=== PATIENT | female | born 1975 | race Caucasian/White ===

== ENCOUNTER 2017-03-20 18:11 | Inpatient (IN) | payer OTHER ==
--- NOTE | 2017-03-20 21:50 | NUR ---
Nurses Admission Note 41 year old involuntary female ROHINI'd as danger to self. Patient was found in a [place] parking lot overdosed on Hydrocodone and Robaxin with a suicide note in the car. Patient reported previous psychiatric hospitalizations in grade school with suicidal ideation and depression. Patient couldn't remember several of previously prescribed antidepressants. Patient denied anxiety and panic attacks since leaving her boyfriend in late December/January and has an order of protection and has been essentially homeless since then. Patient rated her depression at 8/10,Anxiety 0/10 and half-heartedly agreed to remain safe on the unit. Patient reported no medications at this time. Patient has a history of neck surgery in 2013 and had been prescribed Hydrocodone and Robaxin at that time. Will maintain q 15min. checks for safety and support.
[2017-03-21] MEDS ORDERED: Magnesium Hydroxide 10 mL Oral Concentration PO PRN (00:05)
[2017-03-21] MEDS ORDERED: Alum-Mag Hydrox-Simeth 30 mL Suspension PO PRN (00:05)
--- NOTE | 2017-03-21 01:01 | NUR ---
ADMIT/NOC OBS Arrived to unit at 2150. Signed all paperwork and was oriented to unit. Affect flat with minimal eye contact. Appropriate response to questions and interactions. Speech soft and reserved in demeanor, looking at times ready to cry. Pt was somewhat tearful once in bed. Asleep at 0000. Observed Q15 as ordered.
--- NOTE | 2017-03-21 13:53 | NUR ---
Obs Dayshift Pt is calm, quiet, reserved, head down, poor eye contact, appears sad and depressed. Pt spent most of the day in her room and appeared to be sleeping most of that time. Pt does get up and participates in meals, and groups on the unit. Pt is polite and appropriate on the unit and in groups. Good ADL's, Good meals
[2017-03-21 14:02] LABS: BASOPHILS % (AUTO) 0.2 % (0-3); EOSINOPHILS % (AUTO) 6.3 % (0-5); MONOCYTES % (AUTO) 7.2 % (4-12); Mean Corpuscular Hemoglobin 29.2 pg (27.0-35.0); Mean Corpuscular Volume 87.6 fL (81-100); NEUTROPHILS % (AUTO) 63.4 % (40-74); Platelet Count 216 bil/L (150-400)
--- NOTE | 2017-03-21 15:15 | NUR ---
Nursing Notes [id number] S: "I just don't understand why I am still here". O: Patient isolating in room. Did not come to dining room for breakfast and ate only about 30% of lunch. Patient denied anxiety, rated depression as "27" and would not respond when asked about current suicidal ideation. A: Patient labile, tearful and sobbing at times. Depressed, flat affect, guarded. P: Monitor for safety and response to treatment. Follow plan of care.
--- NOTE | 2017-03-21 18:21 | NUR ---
manager clinical informatics/Counselor: S: "I'm just not really good at the life thing." O: Patient slept 5+ hours last night per staff. Patient denies S/I and H/I. She also denies auditory and visual hallucinations. Depression is 10/10 and anxiety is 10/10. A: Patient is cooperative, labile, guarded, depressed, flat affect, hopeless, helpless, limited insight, limited judgment. P: Follow care plan, coordinate with out-patient providers.
[2017-03-21 19:28] VITALS: BP 116/80; PULSE 67; RESP 16
[2017-03-21] MEDS: LORazepam 1 mg Tablet PO PRN (20:21)
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
--- NOTE | 2017-03-22 04:44 | NUR ---
nausea/meds: pt. nauseas, too early for zofran, pt. given 1mg ativan, nausea improved, pt. able to sleep.
[2017-03-22 09:30] VITALS: BP 121/86; PULSE 68; RESP 17
--- NOTE | 2017-03-22 15:05 | NUR ---
NURS Note DAYSHIFT Mood: Endorses depression. Denies anxiety. Affect: Tearful. Thought Process/Content: "I wish I hadn't survived. I feel guilty for thinking that." Linear, logical. Behavior: Pt attended and participated in all groups. In bed in afternoon. PRNs/NURS:Pt requested and given feminine products.
--- NOTE | 2017-03-22 18:08 | PCM.PNPSY ---
Subjective Date of Service Mar 22, 2017 Subjective Patient states she is "doing better" compared to yesterday. She shared that she had told herself, "Today I am going to eat something" and other positive thought processes such as attending group and not isolating. She admits to increased negative thoughts with isolation. Patient contacted a friend who reported to her work that she was under medical care. She believes that most of her social group is aware of her current hospitalization as her ex-boyfriend contacted her Facebook friends and informed them. She believes her company will be supportive. Patient denies medication side effects but states that rapid increase in Sertraline previously resulted in nausea. She reports her current nausea started before the first dose of Sertraline and that it is not related. Her nausea responded well to Zofran and crackers. Patient admits that she is uncertain as to what the next steps would be as "there wasn't supposed to be an after". Endorsed that she "may be safe" here and that she will "try to ask for help" if she is feeling unsafe. Sleep: 6hours Appetite: slightly improved Suicidal and homicidal ideation: "flitters" of SI without current intent Auditory hallucinations: denies Visual hallucinations: denies Other Psychotic Symptoms: denies Anxiety: "fine" Depression: 8 to 9 out of 10 Mental Status Exam Appearance: Unkept Attitude: Pleasant Behavior: Distractible Affect: Restricted (Improved over yesterday. Occasional appropriate smiles.) Mood: Dysthymic (improved over yesterday, worsened when discussing future plans ) Thought Process/Associations: Logical/Sequential, Goal Directed Speech Production: Normal Speech Rate: Normal Speech Articulation: Normal Thought Content: Appropriate Danger to Self/Suicidal Ideati: Passive Danger to Others: None Hallucinations: Auditory (Denies), Visual (Denies) Consciousness: Alert Orientation: Person, Place, Situation Memory: Grossly Intact, Registration (Intact) Estimate Intellectual Function: Average Basis for IQ estimate: Word use/vocabulary, Educational history Attention/Concentration & Cogn: Intact Insight: Good Judgement: Good Result Diagram: 03/21/17 1352 03/21/17 1352 Mental Health Plan Patient is 41 year old female with long history of trauma and depression presenting with worsening depression and suicide attempt requiring intubation, 3 -4 months after last taking medication. Discussed restarting medications with patient and means to pay for discounted prescriptions and the patient was agreeable to this plan. Patient is actively engaging in treatment, participating in group, using motivating self-talk, and avoiding isolation. [place] AXIS I: Major Depression, recurrent, non-psychotic AXIS II: Cluster B traits AXIS III: S/p overdose. Hypothyroidism AXIS IV: Homeless, work stress AXIS V: GAF 35 Treatments 1. The patient is admitted to the inpatient unit and will be provided a safe and secure environment. 2. The patient is denying current active suicidality and is not in need of a one-to-one at this time. 3. The patient is encouraged to participate with group and milieu activities. 4. The patient will be seen by the treatment team on a daily basis to assess symptoms, side effects and response to treatment. 5. Sertraline 50mg daily and increase to 75mg in a few days and then to 100mg as she had previously experienced nausea with rapid increase. 6. Continue Synthroid 137mcg po daily 7. F/u labs 8. Provided work note 9. Anticipated length of stay is 7-10 days. Attending Statement The patient was seen and examined together with Dr. Menendez on 03/22/17 and I agree with the history, exam and plan as outlined in the note above. Eusebia Morris DO Mar 22, 2017 18:08 Willard Dempsey MD Mar 22, 2017 22:47
--- NOTE | 2017-03-22 18:51 | NUR ---
Observations [id number] Pt friendly and cooperative with staff. Goal was to stay out of room, pt was successful at not isolating. Pt attended all meals, eating an average of 75%. Pt good with ADL's, attended group. She was observed every 15 minutes of shift as directed.
--- NOTE | 2017-03-22 19:23 | NUR ---
nurse case manager/Counselor: S: "I feel better than yesterday." O: Patient slept 6 hours last night per staff. Patient denies S/I, but has "flitters of thoughts." She denies H/I. She also denies auditory and visual hallucinations. Depression is 8-9/10 and anxiety is "fine." When asked her mood, patient stated, "Numb." Patient also stated that she is kind of depressed that "it" didn't work (the suicide). This scientific writer faxed a letter, ATTN: Pepe, to patient's emergency department manager, notifying of patient's hospitalization. Patient attended the 11am group and participated is the group discussion. A: Patient is cooperative, labile, guarded, depressed, brighter affect, less hopeless, tearful, limited insight, limited judgment. P: Follow care plan, coordinate with out-patient providers.
[2017-03-22] MEDS: LORazepam 1 mg Tablet PO PRN (21:11)
[2017-03-22] MEDS: Benzocaine-Menthol Lozenge 2/Pkg PO PRN (22:00)
--- NOTE | 2017-03-23 04:46 | NUR ---
nursing, nights, 11-7 s/o- has appeared to sleep after 2244 during q 15 minute assessments. a- no apparent distress. p- monitor behavior/emotional state, quality, times and amount of sleep, use and effect of medication. lobito
--- NOTE | 2017-03-23 13:32 | NUR ---
Nursing Note [id number] Behavior S/O: Pt laying head on table this morning stating she was nauseated. She requested ute mali. It was given to her. Pt then ate 75% of breakfast. She ate 30% of lunch. Pt rated her depression at a "4" on a scale of 1-10/10 the best. "I didn't take enough [overdose]." When asked about suicidal ideation she stated, "I wouldn't do anything." When asked if she was having suicidal thoughts, she refused to answer & would not make eye contact. Conversation tracking is clear & organized with normal rate & rhythm. Affect is flat & sad. A: Pt appears to continue having suicidal thoughts. Unsure if pt would be safe at home. P: Provide supportive environment. Monitor medications & effects.
[2017-03-23 14:22] VITALS: BP 135/93; PULSE 66; RESP 16
--- NOTE | 2017-03-23 16:43 | NUR ---
[facility] Day Shift Pt maintained behavioral control throughout the shift. Pt affect appears flat, somewhat brighter when engaged with staff and peers. Pt spends most of the shift resting in her room, isolating from peers. Pt is not social with staff or peers when active on the unit, but is appropriate with staff and peers when active on the unit. Pt did not attend community meeting or group activities throughout the shift. Pt has attended all meals at this time and has eaten approx 100% of all meals.
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
--- NOTE | 2017-03-23 22:15 | NUR ---
NURSING NOTE [id number] Mood: "kind of numb" Affect: depressed Behavior: pt. resting in bed w/eyes open and isolating to room, out for meals, later sat and watched TV w/peers and journaled. Thought processes: pt. reports she continues to feel depressed this evening, reports that she is safe on the unit: "nothing I can do here" *chuckles* but indicated if she were to leave today she would not be safe. When asked if she can identify reasons to live the pt. stated "I guess there would be people who would be upset with me if I " but then stated "I'm just tired... I've been depressed most of my life, I just don't want to do it anymore." Pt. identified she feels alone in the world and recognizes she gets into the same pattern over and over of "getting with the wrong rowan." Reports she has tried counseling off and on in the past but is ambivalent about doing it again.
[2017-03-24] MEDS: Benzocaine-Menthol Lozenge 2/Pkg PO PRN (01:11)
--- NOTE | 2017-03-24 05:26 | NUR ---
Nursing note: shiftman Patient appears to be sleeping on safety checks during the night. Patient only noted to be awake briefly to request cepacol lozenge for dry throat. Patient returned to bed without any further complaints.
[2017-03-24 12:05] VITALS: BP 145/107; PULSE 64; RESP 16
--- NOTE | 2017-03-24 14:43 | NUR ---
Nursing Note [id number] Mood, Behavior S/O: Pt took medications as ordered. Pleasant & cooperative with staff & peers. She states, "I'm feeling better today." Pt rates mood as a "7" on a scale of 1-10/10 the best. She reports "a little bit" of anxiety r/t discharging. She denies suicidal ideation. Pt has isolated in room much of the day, but is attending afternoon group run by gearcase assembler. A: Pt improving in past 2 days. P: Provide supportive environment. Monitor medications & effects.
--- NOTE | 2017-03-24 15:36 | NUR ---
Wildlife Forensic Geneticist/Counselor S:"I feel like my medications are kicking in." O: Patient stated she didn't really have any SI, no HI, no AVH, and her depression was at a 7 and her anxiety was high. A: Patient stated that she felt like her medications are working. She has decided to move in with a friend after discharge, and will move to [place] with the friend. She expressed some concern about how to get back to [place]. She stated that her nausea was better, and she has some supportive friends. P: Follow care plans and coordinate with outpatient providers. Addendum: 03/24/17 at 1548 by [facility]NANDO [facility] Patient attended the group session and participated in all discussions.
--- NOTE | 2017-03-24 16:38 | PCM.PNPSY ---
Subjective Date of Service Mar 24, 2017 Subjective The patient reports that things are "better, meds are starting to kick in and again." The patient reports that she plans to go back to [place] to take care of things such as her storage and plans to stay with her friend Sandra while there. She feels that her friend Alka has better boundaries and will not be as enmeshed as her other friends. She feels this will be a healthier living environment for her. She states that she has been welcome to accompany her friend back to [place] to stay with her grandmother. She would like to eventually move to [place]. Sleep: 8+ hours Appetite: "Not great but eating." Suicidal and homicidal ideation: Denies Auditory hallucinations: Denies Visual hallucinations: Denied Other Psychotic Symptoms: N/A Anxiety: Still present but lower Depression: 04/02 Current Medications Current Medications Sertraline HCl 75 mg DAILY PO Last administered on 03/24/17t 07:50; Admin Dose 75 MG; Start 03/24/17 at 08:30 Mental Status Exam Vital Signs Vital Signs Date Time Temp Pulse Resp B/P Pulse Ox O2 Delivery O2 Flow Rate FiO2 03/24/17 12:05 36.2 64 16 145/107 Appearance: Neat/well groomed Attitude: Pleasant Behavior: No unusual behavior Affect: Well Modulated/Appropriate, Restricted Mood: Dysthymic Thought Process/Associations: Logical/Sequential, Goal Directed Speech Production: Normal Speech Rate: Normal Speech Articulation: Normal Thought Content: Appropriate Danger to Self/Suicidal Ideati: None Danger to Others: None Hallucinations: Auditory (Denies), Visual (Denies) Consciousness: Alert Orientation: Person, Place, Date, Situation Memory: Grossly Intact Estimate Intellectual Function: Average Basis for IQ estimate: Word use/vocabulary, Educational history Attention/Concentration & Cogn: Intact Insight: Good Judgement: Good Result Diagram: 03/21/17 1352 03/21/17 1352 Mental Health Plan Patient is 41 year old female with long history of trauma and depression presenting with worsening depression, 3-4 months after last taking medication. Discussed restarting medications with patient and means to pay for discounted prescriptions and the patient was agreeable to this plan. She reports that her symptoms appear to be improving and she is tolerating the titration of sertraline without difficulty. [place] AXIS I: Major Depression, recurrent, non-psychotic AXIS II: Cluster B traits AXIS III: S/p overdose. Hypothyroidism AXIS IV: Homeless, work stress AXIS V: GAF 35 Treatments 1. The patient is admitted to the inpatient unit and will be provided a safe and secure environment. 2. The patient is denying current active suicidality and is not in need of a one-to-one at this time. 3. The patient is encouraged to participate with group and milieu activities. 4. The patient will be seen by the treatment team on a daily basis to assess symptoms, side effects and response to treatment. 5. Increase Sertraline to 100mg on Sunday. 6. Continue Synthroid 137mcg po daily 7. F/u labs before discharge 8. Patient to make pro/con list of living arrangements. Review tomorrow. 9. Anticipated length of stay is 7-10 days. Willard Dempsey MD Mar 24, 2017 16:38
--- NOTE | 2017-03-24 19:06 | NUR ---
Observations 0700 - 1900 Pt affect and mood was mostly flat and brighter when engaged. Pt was out of her room most of the shift today. Pt was pleasant, polite and cooperative when approached. Pt maintained behavior throughout the shift. Pt speech and eye contact was good. Pt was offered snack. Pt attended community meeting, groups and unit activities. Pt attended meals in D.R. and ate approximately 75%. Pt had a visitor and it appeared to go well. Pt went out on patio to get some fresh air and read. Pt was observed every 15 minutes through the shift as ordered.
[2017-03-24] MEDS: LORazepam 1 mg Tablet PO PRN (20:33)
--- NOTE | 2017-03-24 20:49 | NUR ---
NURSING NOTE [id number] Mood: "a little stressed" Affect: anxious, depressed Behavior: pt. has been mostly visible this evening, her friend visited and they discussed discharge plans for the pt. with pt's tentative plan being to return to [place] and attempt to sell much of her belongings currently in storage "so I can have gas money" and then to take the remaining items with her to her friend's house where she will live for the time being. Pt. reports that she is feeling "a little overwhelmed" and "stressed" but that she feels supported by her friend. Pt. took a PRN Ativan 1 mg @ HS for her anxiety. She attended wrap-up group. Thought processes: endorsed anxiety and depression, denied SI. No disturbed thought content.
--- NOTE | 2017-03-25 06:21 | NUR ---
Sleep Pt slept from [id number] for a total of 6.5 hours. Pt sitting in the main area while attending to quiet activities. No complaints or apparent distress this morning.
--- NOTE | 2017-03-25 14:22 | NUR ---
Nursing Note [id number] Behavior, Mood S/O: Pt out in milieu with peers. Polite & cooperative with peers & staff. Pt attending groups. Pt reports she has been using relaxations techniques taught by case operator yesterday. She reports it has been effective. Conversation tracking clear & organized with normal rate & rhythm. Affect is bright & full. Discussed coping skills she could use when she goes home. A: Pt is slowly improving. P: Provide supportive environment. Monitor medication & effects.
[2017-03-25 16:23] VITALS: BP 116/84; PULSE 65; RESP 16
--- NOTE | 2017-03-25 19:31 | NUR ---
Observations 00 - 0 Pt affect and mood remained the same as previous days. Pt was in and out of her room most of the shift today. Pt was pleasant, polite and cooperative when approached. Pt maintained behavior throughout the shift. Pt speech and eye contact was good. Pt attended community meeting and set a daily goal. Pt attended group and unit activities. Pt attended meals in D.R. and ate approximately 75%. Pt went out on patio to get some fresh air and read her book. Pt was minimally social and standoffish with select peers. Pt was observed every 15 minutes through the shift as ordered.
[2017-03-25] MEDS: Benzocaine-Menthol Lozenge 2/Pkg PO PRN (21:01)
--- NOTE | 2017-03-25 23:18 | PCM.PNPSY ---
Subjective Date of Service Mar 25, 2017 Subjective The patient reports that things are "Doing good. Some trouble with anxiety going back to [place]." She reported that her friend, Alka, can come to get her quickly if problems arise. She thinks that she will now go to live with her sister in [place] and eventually move to [place] with her friend, Alka. Had patient rank order anxiety provoking thoughts about returning to [place]. Patient agreeable to increasing sertraline. No side effect complaints. Sleep: 6.5+ hours Appetite: "a little better." Suicidal and homicidal ideation: Denies Auditory hallucinations: Denies Visual hallucinations: Denied Other Psychotic Symptoms: N/A Anxiety: "pretty good" Depression: Current Medications Current Medications Sertraline HCl 75 mg DAILY PO Last administered on 03/25/17t 07:59; Admin Dose 75 MG; Start 03/24/17 at 08:30; Stop 03/25/17 at 13:17; Status DC Mental Status Exam Vital Signs Vital Signs Date Time Temp Pulse Resp B/P Pulse Ox O2 Delivery O2 Flow Rate FiO2 03/25/17 16:23 35.6 65 16 116/84 Appearance: Neat/well groomed Attitude: Pleasant Behavior: No unusual behavior Affect: Well Modulated/Appropriate, Restricted Mood: Dysthymic, Anxious Thought Process/Associations: Logical/Sequential, Goal Directed Speech Production: Normal Speech Rate: Normal Speech Articulation: Normal Thought Content: Appropriate Danger to Self/Suicidal Ideati: None Danger to Others: None Hallucinations: Auditory (Denies), Visual (Denies) Consciousness: Alert Orientation: Person, Place, Date, Situation Memory: Grossly Intact Estimate Intellectual Function: Average Basis for IQ estimate: Word use/vocabulary, Educational history Attention/Concentration & Cogn: Intact Insight: Good Judgement: Good Result Diagram: 03/21/17 1352 03/21/17 1352 Mental Health Plan Patient is 41 year old female with long history of trauma and depression presenting with worsening depression, 3-4 months after last taking medication. Discussed restarting medications with patient and means to pay for discounted prescriptions and the patient was agreeable to this plan. She reports that her symptoms appear to be improving and she is tolerating the titration of sertraline without difficulty. Had patient rank anxiety provoking thoughts and events and practice systematic desensitization with patient. [place] AXIS I: Major Depression, recurrent, non-psychotic AXIS II: Cluster B traits AXIS III: S/p overdose. Hypothyroidism AXIS IV: Homeless, work stress AXIS V: GAF 40 Treatments 1. The patient is admitted to the inpatient unit and will be provided a safe and secure environment. 2. The patient is denying current active suicidality and is not in need of a one-to-one at this time. 3. The patient is encouraged to participate with group and milieu activities. 4. The patient will be seen by the treatment team on a daily basis to assess symptoms, side effects and response to treatment. 5. Increase Sertraline to 100mg on Sunday. 6. Continue Synthroid 137mcg po daily 7. F/u labs before discharge 8. Reviewed list of anxiety provoking thoughts/actions for [place] and practiced desensitization. 9. Anticipated length of stay is 7-10 days. Willard Dempsey MD Mar 25, 2017 23:17
--- NOTE | 2017-03-26 05:03 | NUR ---
Nursing Note Treatment Specialist 11pm to 7am Pt asleep at start of shift and slept through the night uninterrupted Pt monitored with q15 min face checks for safety, location and accountability
--- NOTE | 2017-03-26 13:12 | PCM.PNPSY ---
Subjective Date of Service Mar 26, 2017 Subjective Patient roused from bed and joined us in the meeting room for the interview. She continues to feel anxious about returning to [place] where she will need to go to handle some of her business (get her belongings out of storage). She has decided that she will be moving to [place] to live with her sister (Celina). She is also feeling anxiety about being able to afford her medications in part because she does not know if she will have employment upon discharge. She believes her anxiety is manifesting somatically in the form of nausea. She attempted desensitization visualization yesterday and this has been of limited help. Sleep: 6.75h Appetite: nausea Suicidal and homicidal ideation: denies Auditory hallucinations: denies Visual hallucinations: denies Other Psychotic Symptoms: denies Anxiety: 06/03 Depression: to 04/02 Current Medications Current Medications Sertraline HCl 100 mg DAILY PO Last administered on 03/26/17t 08:52; Admin Dose 50 MG; Start 03/26/17 at 08:30 Mental Status Exam Appearance: Disheveled (Was roused from bed) Attitude: Pleasant Behavior: No unusual behavior Affect: Well Modulated/Appropriate, Restricted Mood: Dysthymic, Anxious Thought Process/Associations: Logical/Sequential, Goal Directed Speech Production: Normal Speech Rate: Normal Speech Articulation: Normal Thought Content: Appropriate Danger to Self/Suicidal Ideati: None Danger to Others: None Hallucinations: Auditory (Denies), Visual (Denies) Consciousness: Alert Orientation: Person, Place, Date, Situation Memory: Grossly Intact Estimate Intellectual Function: Average Basis for IQ estimate: Word use/vocabulary, Educational history Attention/Concentration & Cogn: Intact Insight: Good Judgement: Good Result Diagram: 03/21/17 1352 03/21/17 1352 Mental Health Plan Patient is 41 year old female with long history of trauma and depression presenting with worsening depression and suicide attempt requiring intubation, 3 -4 months after last taking medication. Discussed restarting medications with patient and means to pay for discounted prescriptions and the patient was agreeable to this plan. Patient is actively engaging in treatment, and participating in group. Patient has started discharge planning and working through anxiety surrounding discharge. She agrees to continue visualization desensitization and is willing to combine this with relaxation techniques. [place] AXIS I: Major Depression, recurrent, non-psychotic AXIS II: Cluster B traits AXIS III: S/p overdose. Hypothyroidism AXIS IV: Homeless, work stress AXIS V: GAF 40 Treatments 1. The patient is admitted to the inpatient unit and will be provided a safe and secure environment. 2. The patient is denying current active suicidality and is not in need of a one-to-one at this time. 3. The patient is encouraged to participate with group and milieu activities. 4. The patient will be seen by the treatment team on a daily basis to assess symptoms, side effects and response to treatment. 5. Increase Sertraline to 100mg today. 6. Continue Synthroid 137mcg po daily 7. F/u labs before discharge 8. Reviewed list of anxiety provoking thoughts/actions for [place] and practiced desensitization with relaxation. 9. Anticipated length of stay is 7-10 days. Attending Statement The patient was seen and examined together with Dr. Menendez on 03/26/17 and I agree with the history, exam and plan as outlined in the note above. Eusebia Morris DO Mar 26, 2017 13:12 iWllard Dempsey MD Mar 26, 2017 22:12
--- NOTE | 2017-03-26 15:11 | NUR ---
nursing note: Pt c/o nausea early this am and was given Zofran with good result
--- NOTE | 2017-03-26 15:29 | NUR ---
Stud Beef Cattle Farmer/Counselor S: "I'm worried about going back to [place]." O:Patient did not express any SI or HI, no AVH, and rated her anxiety at a 9 and her depression at a 6-7. A: Patient participated in meditation group, and stated she felt more relaxed and calm after. She is friendly and cooperative, and out on the milieu frequently. She stated that she has some nausea related to her anxiety. She is also making plans to move to [place] to be with her sister. P:Follow care plan and coordinate with outpatient providers.
--- NOTE | 2017-03-26 17:39 | NUR ---
Nursin to 1500 S: I'm now thinking of going to [place], getting my things out of storage, and then will stay with my sister in [place]. RE: Suicidality: "To be perfectly honest, I still don't really want to be alive. But I know now that people love me. And I am working against the suicidal feelings. O: Chelle has been going to groups and has been out on the open unit appropriately today. She is verbally responsive on approach. No latency. Rated suicidality at 2/10, depression at 6/10 and stated that she feels anxious when she thinks about what she needs to deal with when she goes home. A: Improved. P: Continue to assess prior to possible court date on Sun.
--- NOTE | 2017-03-26 18:39 | NUR ---
Observations [id number] Pt friendly with peers and staff, much more active on unit then observed in previous shifts. Pt acknowledged that she is in fact feeling better. Pt showered, attended groups, and spent time on patio. Pt also rested much of the day. Good with ADL's, ate average of 75% of meals. Pt was observed every 15 minutes of shift as directed.
[2017-03-26] MEDS: LORazepam 1 mg Tablet PO PRN (21:28)
--- NOTE | 2017-03-26 22:11 | NUR ---
NURS NOTE [id number] Mood: "I'm feeling pretty anxious. Mostly about what's happening after I leave." Endorses "some" depression and significant anxiety. Affect: Well-modulated. Behavior: Interacting appropriately with peers. Watching television, talking with peers. Thought Content/Process: Linear logical. Denies DOROTA WOLFF. Denies CLAYTON MENDEZ. PRN/NURS Notes: Pt took PRN Ativan 1 mg for sleep at 2130.
--- NOTE | 2017-03-27 06:01 | NUR ---
Nursing Note Process Engineering Manager 11pm to 7am Pt asleep at start of shift and remained asleep the duration of the shift. Monitored pt. with q 15 minute face checks for safety location and accountability.
[2017-03-27 08:08] VITALS: BP 120/84; PULSE 73; RESP 17
[2017-03-27 10:12] LABS: BASOPHILS % (AUTO) 0.5 % (0-3); EOSINOPHILS % (AUTO) 7.3 % (0-5); MONOCYTES % (AUTO) 6.2 % (4-12); Mean Corpuscular Hemoglobin 29.7 pg (27.0-35.0); Mean Corpuscular Volume 87.5 fL (81-100); NEUTROPHILS % (AUTO) 59.4 % (40-74); Platelet Count 308 bil/L (150-400)
--- NOTE | 2017-03-27 15:20 | NUR ---
Digital Forensics Examiner/Counselor S:"I'm feeling much better today." O:Patient reported no SI or HI, no AVH, and rated her depression at a 3 and her anxiety at a 4. A: Patient stated that she ate all her lunch and wasn't nauseous today due to her decreased anxiety. She stated that she was feeling much better, and visually the patient appears to be much better than last week. Patient has been out in the milieu and interacting with other patients. She is still anxious about going back to [place], but stated that she does have friends there that will support her. P: Follow care plan and coordinate with outpatient providers.
--- NOTE | 2017-03-27 18:02 | PCM.PNPSY ---
Subjective Date of Service Mar 27, 2017 Subjective The patient reports that she is "much better today." The patient was able to use her systematic desensitization list and reported getting fairly poor down before becoming anxious. She reports having her most anxiety early in the morning and late in the evening. She denies side effects to medications. Sleep: 8.5hr Appetite: "Pretty good" Suicidal and homicidal ideation: denies Auditory hallucinations: denies Visual hallucinations: denies Other Psychotic Symptoms: denies Anxiety: 10 Depression: 12/01 Current Medications Current Medications Sertraline HCl 100 mg DAILY PO Last administered on 03/27/17 08:25; Admin Dose 100 MG; Start 03/26/17 at 08:30 Mental Status Exam Appearance: Disheveled (Was roused from bed) Attitude: Pleasant Behavior: No unusual behavior Affect: Well Modulated/Appropriate, Restricted Mood: Dysthymic, Anxious Thought Process/Associations: Logical/Sequential, Goal Directed Speech Production: Normal Speech Rate: Normal Speech Articulation: Normal Thought Content: Appropriate Danger to Self/Suicidal Ideati: None Danger to Others: None Hallucinations: Auditory (Denies), Visual (Denies) Consciousness: Alert Orientation: Person, Place, Date, Situation Memory: Grossly Intact Estimate Intellectual Function: Average Basis for IQ estimate: Word use/vocabulary, Educational history Attention/Concentration & Cogn: Intact Insight: Good Judgement: Good Result Diagram: 03/27/17 0953 03/27/17 0953 Mental Health Plan Patient is 41 year old female with long history of trauma and depression presenting with worsening depression, 3-4 months after last taking medication. Discussed restarting medications with patient and means to pay for discounted prescriptions and the patient was agreeable to this plan. She reports that her symptoms appear to be improving and she is tolerating the titration of sertraline without difficulty. Had patient rank anxiety provoking thoughts and events and practice systematic desensitization with patient. The patient reports doing well. Follow-up laboratory studies normalizing except ALT slightly elevated. [place] AXIS I: Major Depression, recurrent, non-psychotic AXIS II: Cluster B traits AXIS III: S/p overdose. Hypothyroidism AXIS IV: Homeless, work stress AXIS V: GAF 40 Treatments 1. The patient is admitted to the inpatient unit and will be provided a safe and secure environment. 2. The patient is denying current active suicidality and is not in need of a one-to-one at this time. 3. The patient is encouraged to participate with group and milieu activities. 4. The patient will be seen by the treatment team on a daily basis to assess symptoms, side effects and response to treatment. 5. Increase Sertraline to 100mg today. 6. Continue Synthroid 137mcg po daily 7. Patient may be agreeable to a less restrictive order. 8. Reviewed list of anxiety provoking thoughts/actions for [place] and practiced desensitization with relaxation. 9. Anticipated length of stay is 7-10 days. Willard Dempsey MD Mar 27, 2017 18:02
--- NOTE | 2017-03-27 18:51 | NUR ---
Nursin to 1900. Angelina has been appropriate on the unit today. She is planning to discharge on Sunday after arrangements have been made for follow up care. Plans to stay in [place] "for the 90 days." (LRO). Denies SI, HI, Depression, and anxiety now. P: Support toward discharge.
--- NOTE | 2017-03-27 19:09 | NUR ---
Observations [id number] Pt friendly with peers and staff, appeared in pleasant mood. Spent more time in common areas, less time in bed. Pt used phone, participated in group, and attended Community Meeting. Attended all meals, eating 100%. Pt worked on art in the afternoon, making thank you gift for staff. Pt good with ADL's, observed every 15 minutes of shift as directed.
--- NOTE | 2017-03-28 05:55 | NUR ---
Nursing Noc Pt pleasant and cooperative on unit, using PRN for sleep assist successfully, looking forward to possible discharge Sunday. Court today with plan for LR + two days. Noted to be asleep at 2330 and remained asleep throughout the night. Continuing to monitor mood, behavior, emotional state. Q15 minute safety checks throughout the night. BHCP
[2017-03-28 10:32] VITALS: BP 134/78; PULSE 79; RESP 16
--- NOTE | 2017-03-28 13:22 | NUR ---
Nursing Note [id number] Court, Behavior S/O: Pt took all medications as ordered this morning. Pt pleasant & cooperative. Pt stated she was nervous about court this morning. Pt placed on LRO plus 2 days hospitalization to help finalize outpatient follow-up prior to discharge. Pt reports mood is at a "7" on a scale of 1-10/10 the best. Pt attending groups & participating. Conversation tracking clear & organized with normal rate & rhythm. Full affect. She reports she is feeling "much better." A: Pt much improved since admission to unit. P: Provide supportive environment. Monitor medications & effects. Finalize discharge plans.
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
--- NOTE | 2017-03-28 17:45 | NUR ---
[facility] Day Shift Pt affect and behavior unchanged from previous shifts. Pt maintained behavioral control throughout the shift. Pt affect appears flat, somewhat brighter when engaged with staff and peers. Pt spends most of the shift resting in her room, isolating from peers. Pt is not social with staff or peers when active on the unit, but is appropriate with staff and peers when active on the unit. Pt did not attend community meeting or group activities throughout the shift. Pt has attended all meals at this time and has eaten approx 100% of all meals.
--- NOTE | 2017-03-28 18:23 | NUR ---
grievance manager/Counselor: S: "I have everything in place for a smooth discharge." O: Patient slept 6.5 hours last night per staff. Patient denies S/I and H/I. She also denies auditory and visual hallucinations. Depression is 4-5/10 and anxiety is 4/10. A: Patient is cooperative, pleasant, anxious, good insight, good judgment. P: Follow care plan, coordinate with out-patient providers.
[2017-03-28] MEDS: LORazepam 1 mg Tablet PO PRN (21:09)
--- NOTE | 2017-03-28 22:36 | NUR ---
NURSING NOTE [id number] Mood: "okay" Affect: flat, brightens on approach Behavior: visible most of the evening in DR, watching TV and is social off and on w/peers. Later walked laps up and down the halls for exercise. Thought processes: Denying SI or depression this evening. Planning to discharge by end of week once care coordination is established.
--- NOTE | 2017-03-29 05:23 | NUR ---
nursing, nights, 11-7 s/o- has appeared to sleep after 0 during q 15 minute assessments. a- no apparent distress. p- monitor behavior/emotional state, quality, times and amount of sleep, use and effect of medication. lobito
--- NOTE | 2017-03-29 14:12 | NUR ---
Nursing Note [id number] Mood S/O: Pt has plans to take a bus back to [facility] this afternoon. She will be staying with a friend there. Pt pleasant & cooperative peers & staff. She has been out in the milieu with peers. She has attended groups. She rated her mood at a 7 or 8 on a scale of 1-10/10 the best. Pt given info about [facility] in [facility]. Safety plan & early warning signs filled out. Pt denies suicidal/homicidal ideation or hallucinations. Affect is bright when talking with pt. A: Pt appears ready for discharge. P: Provide supportive environment. Monitor medications & effects.
--- NOTE | 2017-03-29 14:53 | PCM.DIMED ---
Discharge Instructions Date of Service Mar 29, 2017 Dates of Hospitalization Mar 20, 2017 at 21:58 Discharge Diagnosis Discharge Diagnosis AXIS I: Major Depression, recurrent, non-psychotic AXIS II: Defer AXIS III: Status-post overdose. Hypothyroidism AXIS IV: Homeless, work stress AXIS V: GAF 50 Test Results Test Results Laboratory Tests 72 Hours Test 03/27/17 09:53 White Blood Count 8.1th/mm3 (3.8-10.1) Red Blood Count 4.89mil/mm3 (3.90-5.20) Hemoglobin 14.5g/dL (12.0-15.6) Hematocrit 42.8% (35.0-46.0) Mean Corpuscular Volume 87.5fL (81-100) Mean Corpuscular Hemoglobin 29.7pg (27.0-35.0) Mean Corpuscular Hemoglobin Concent 33.9% (32.0-37.0) Red Cell Distribution Width 13.9% (12.3-15.4) Platelet Count 308bil/L (150-400) Neutrophils (%) (Auto) 59.4% (40-74) Lymphocytes (%) (Auto) 26.1% (14-46) Monocytes (%) (Auto) 6.2% (4-12) Eosinophils (%) (Auto) 7.3% (0-5) Basophils (%) (Auto) 0.5% (0-3) Sodium Level 139mEq/L (134-144) Potassium Level 4.4mEq/L (3.5-5.2) Chloride Level 100mEq/L (97-108) Carbon Dioxide Level 24mmol/L (18-29) Blood Urea Nitrogen 14mg/dL (6-24) Creatinine 0.95mg/dL (0.57-1.00) Estimat Glomerular Filtration Rate 93mL/min (>59) Glucose Level 93mg/dL (60-99) Calcium Level 9.6mg/dL (8.5-10.1) Total Bilirubin 0.4mg/dL (0.0-1.2) Aspartate Amino Transf (AST/SGOT) 43U/L (0-50) Alanine Aminotransferase (ALT/SGPT) 48U/L (0-32) Alkaline Phosphatase 68U/L (25-150) Total Protein 6.5g/dL (6.4-8.4) Albumin 4.3g/dL (3.4-5.0) Thyroid Stimulating Hormone (TSH) 25.850uIU/mL (0.450-4.500) Free Thyroxine 1.08ng/dL (0.82-1.77) CBC Test 03/27/17 09:53 White Blood Count 8.1th/mm3 (3.8-10.1) Red Blood Count 4.89mil/mm3 (3.90-5.20) Hemoglobin 14.5g/dL (12.0-15.6) Hematocrit 42.8% (35.0-46.0) Mean Corpuscular Volume 87.5fL (81-100) Mean Corpuscular Hemoglobin 29.7pg (27.0-35.0) Mean Corpuscular Hemoglobin Concent 33.9% (32.0-37.0) Red Cell Distribution Width 13.9% (12.3-15.4) Platelet Count 308bil/L (150-400) Neutrophils (%) (Auto) 59.4% (40-74) Lymphocytes (%) (Auto) 26.1% (14-46) Monocytes (%) (Auto) 6.2% (4-12) Eosinophils (%) (Auto) 7.3% (0-5) Basophils (%) (Auto) 0.5% (0-3) CMP Test 03/27/17 09:53 Sodium Level 139mEq/L Potassium Level 4.4mEq/L Chloride Level 100mEq/L Carbon Dioxide Level 24mmol/L Blood Urea Nitrogen 14mg/dL Creatinine 0.95mg/dL Estimat Glomerular Filtration Rate 93mL/min Glucose Level 93mg/dL Calcium Level 9.6mg/dL Total Bilirubin 0.4mg/dL Aspartate Amino Transf (AST/SGOT) 43U/L Alanine Aminotransferase (ALT/SGPT) 48U/L Alkaline Phosphatase 68U/L Total Protein 6.5g/dL Albumin 4.3g/dL Thyroid Stimulating Hormone (TSH) 25.850uIU/mL Free Thyroxine 1.08ng/dL Diet Discharge Diet: No restrictions Activity Discharge Activity: No restrictions Patient Instructions Patient Instructions Should you have any thoughts of harming yourself or others, please call the crisis line, your provider, 911, or go to the nearest Emergency Department. Do not change or discontinue your medications without discussing with your provider. You have been given a prescription for 30 days supply of your new medication Follow-up plan PCP [facility] on 04/03/17 at 13:30 [address] [place] [address] Therapist Matteo Chadwick on 04/04/17 at 1:00PM [address] [place] [address] Willard Dempsey MD Mar 29, 2017 14:53
[2017-03-29] MEDS ORDERED: LEVO137T24 PO (15:02)
[2017-03-29] MEDS ORDERED: SERT50TA9 PO (15:02)
[2017-03-29] MEDS ORDERED: ZLP5T PO (15:02)
[2017-03-29 17:19] VITALS: BP 123/82; PULSE 68; RESP 16
--- NOTE | 2017-03-29 17:26 | NUR ---
NURS DISCHARGE NOTE Patient cooperative with discharge process. Acknowledges understanding of d/c instructions and has a copy with them upon leaving unit at 1545. Belongings accounted for and with patient. Prescriptions faxed to patient's pharmacy. Patient denies harmful thoughts and hallucinations at this time.
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
--- NOTE | 2017-03-29 18:33 | NUR ---
manager part/Counselor: S: "I think I'm doing pretty good now." O: Patient slept 6.25 hours last night per staff. Patient denies S/I and H/I. She also denies auditory and visual hallucinations. Depression is 2-3/10 and anxiety is 6/10. Out-patient appointments:[facility], 04/03/17 at 1:30pm and Francisco Chadwick, counselor [facility], 04/04/17 at 1:00pm. A: Patient is cooperative, pleasant, hopeful, bright, good insight, good judgment. P: Follow care plan, coordinate with out-patient providers. Addendum: 03/29/17 at 1849 by FERNANDO SILVESTRE [facility] Patient was given information and telephone number for [facility] in [place]. Addendum: 03/29/17 at 1912 by FERNANDO SILVESTRE [facility] Patient attended group and participated in all discussions.
== END 2017-03-29 15:45 | disposition home or self-care (01) | DRG 885 ==
LOC: MHC 21:58
PROVIDERS: ADMIT Psychiatry & Neurology Psychiatry; ATTEND Psychiatry & Neurology Psychiatry
DX: F33.9 Major depressive disorder, recurrent, unspecified (principal); E03.9 Hypothyroidism, unspecified; F41.9 Anxiety disorder, unspecified; Z91.5 Personal history of self-harm; Z59.0 Homelessness